=== PATIENT | male | born 1950 | race Caucasian/White ===

== ENCOUNTER 2021-11-01 07:07 | Day surgery (SDC) | payer MEDICARE ==
[~2021-11-01] VITALS: Ht 177.8 cm; Wt 68.1 kg
[~2021-11-01 07:07] MED LIST: RINGERS SOLUTION,LACTATED 1,000 ML IV ONE
[2021-11-01 07:35] LABS: COVID AG,FIA SOURCE NASAL SWAB
[2021-11-01] MEDS ORDERED: ETHYL ALCOHOL 62% ANTISEPTIC NASAL SANITIZER 0.6 ML AMPUL NASAL ONE (08:00)
[2021-11-01 08:02] LABS: INR 1.1 (0.9-1.1); PROTHROMBIN TIME 11.6 SEC (9.4-11.6)
[2021-11-01] MEDS ORDERED: RINGERS SOLUTION,LACTATED 1,000 ML IV ONE (08:02)
[2021-11-01] MEDS ORDERED: BUPIVACAINE/EPI/PF 0.5% 30 ML VIAL ONE (08:13)
[2021-11-01] MEDS ORDERED: TAMS-13 PO (08:18)
[2021-11-01] MEDS ORDERED: ATOR20TA86 PO (08:19)
[2021-11-01] MEDS ORDERED: LEVO25TA9 PO (08:20)
[2021-11-01] MEDS ORDERED: CEPH-558 PO (08:21)
[2021-11-01] MEDS ORDERED: HYDR-4723 PO (08:22)
[2021-11-01] MEDS ORDERED: VANCOMYCIN HCL 1 GM/VIAL ONE (08:24)
[2021-11-01] MEDS ORDERED: ASPI81TA87 PO ×2 (08:26→10:34)
[2021-11-01 09:16] LABS: GLUCOMETER DEV NAME(LOC) SDS.; GLUCOSE,POINT OF CARE 103 MG/DL (70-110)
[2021-11-01] MEDS ORDERED: ACETAMINOPHEN 1000 MG/ISO-OSM 100 ML IV ONE (09:22)
[2021-11-01] MEDS ORDERED: SUGAMMADEX SODIUM 200 MG/2 ML VIAL IVP ONE (09:22)
[2021-11-01] MEDS ORDERED: ALBUTEROL SULFATE HFA 90 MCG/PUFF 8 GM INHALER IH ONE (12:00)
[2021-11-01] MEDS ORDERED: ROCURONIUM BROMIDE 10 MG/ML 5 ML VIAL IVP ONE (12:00)
[2021-11-01] MEDS ORDERED: ONDANSETRON HCL 4 MG/2 ML VIAL IVP ONE (12:00)
[2021-11-01] MEDS ORDERED: FentaNYL CITRATE PF 100 MCG/2 ML VIAL IVP ONE (12:00)
[2021-11-01] MEDS ORDERED: LIDOCAINE/PF 2% 5 ML VIAL IM ONE (12:00)
[2021-11-01] MEDS ORDERED: PROPOFOL 1% 20 ML VIAL IVP ONE (12:00)
== END 2021-11-01 12:30 | disposition home or self-care (01) ==
LOC: SURGERY 07:07
PROVIDERS: ATTEND Surgery
DX: K40.90 Unilateral inguinal hernia, without obstruction or gangrene, not specified as recurrent (principal); I10 Essential (primary) hypertension; M19.90 Unspecified osteoarthritis, unspecified site; Z79.01 Long term (current) use of anticoagulants; Z79.899 Other long term (current) drug therapy; Z98.890 Other specified postprocedural states; Z79.82 Long term (current) use of aspirin; Z88.8 Allergy status to other drugs, medicaments and biological substances; Z72.89 Other problems related to lifestyle
CPT/HCPCS: 49505; 87426; 82962; 85610; 85730; 36415; 93005; C1781; J3490 ×3; J2704; J0690; J3010; J2405; J3370; Q9967; J7120; J0131; C9803; J3535